=== PATIENT | female | born 1950 | race Caucasian/White ===

== ENCOUNTER 2017-10-30 05:16 | Day surgery (SDC) | payer OTHER, MEDICARE ==
[~2017-10-30] VITALS: Ht 165.1 cm; Wt 140.2 kg
[~2017-10-30 05:16] MED LIST: ALLEGRA ALLERG180 MG PO; COLACE100 MG PO; CORDARONE200 MG PO; COZAAR100 MG PO; ELIQUIS5 MG PO; HAIR, SKIN & N1 EAC1 PO; LASIX40 MG PO; NOPALEA PO; OCUVITE TABLET1 EACH PO; PROBIOTIC & AC1 EACH PO; VITAMIN D31000 UNI2 PO; ZYLOPRIM100 MG PO
[2017-10-30 05:56] VITALS: BP 183/77
[2017-10-30 09:40] VITALS: BP 163/74
[2017-10-30 10:02] VITALS: BP 142/78
== END 2017-10-30 10:14 | disposition home or self-care (01) ==
LOC: SDC 05:16
PROC: 0UDB8ZX Extraction of Endometrium, Via Natural or Artificial Opening Endoscopic, Diagnostic (ICD-10-PCS; principal; 2017-10-30)
DX: N84.0 Polyp of corpus uteri (principal); N95.0 Postmenopausal bleeding; I11.0 Hypertensive heart disease with heart failure; I50.9 Heart failure, unspecified; E66.01 Morbid (severe) obesity due to excess calories; Z68.43 Body mass index [BMI] 50.0-59.9, adult; K21.9 Gastro-esophageal reflux disease without esophagitis; G20 Parkinson's disease; I48.91 Unspecified atrial fibrillation; Z79.01 Long term (current) use of anticoagulants
CPT/HCPCS: 88305; J0330; J0360; J1100; J1580; J2405; J3010; J7050; S0030